=== PATIENT | female | born 1945 | race Caucasian/White ===

== ENCOUNTER 2017-11-22 12:08 | Outpatient (CLI) | payer MEDICARE ==
[2017-11-22 14:03] LABS: #Eosinphils 0.1 thou/uL (0.0-0.7); #Lymphocytes 2.5 thou/uL (1.20-3.40); #Monocytes 0.6 thou/uL (0.11-0.59); #Neutrophils 5.6 thou/uL (1.40-6.50); %Basophils 0.4 % (0.0-1.0); %Eosinophils 1.2 % (0.0-10.0); %Lymphocytes 28.1 % (21.0-51.0); %Monocytes 6.9 % (0.0-10.0); %Neutrophils 63.4 % (42.0-75.0); Hemoglobin 13.5 g/dL (12.0-16.0); Mean Corpuscular Hemoglobin 30.4 pg (27.0-31.0); Mean Corpuscular Volume 92.2 fl (81.0-99.0); Mean Platelet Volume 8.2 fL (7.4-10.4); Platelet Count 246 thou/uL (130-400); RBC Distribution Width 12.3 % (11.5-14.5); Red Blood Cell (RBC) Count 4.45 mill/uL (4.20-5.40); White Blood Cell (WBC) Count 8.9 thou/uL (4.8-10.8)
[2017-11-22 14:04] LABS: Bilirubin Negative (Negative); Blood, Urine Negative (Negative); Clarity CLEAR (Clear); Glucose, Urine (Dipstick) Negative (Negative); Leukocyte Trace (Negative); Nitrite Negative (Negative); Protein, Urine (Dipstick) Negative (Neg-Trace); Specific Gravity, Urine 1.013 (1.002-1.036); Urobilinogen 0.2 mg/dL (0.2-1.0)
[2017-11-22 14:08] LABS: INR-International Normal Ratio 1.1; Prothrombin Time 14.2 SEC (12.0-14.7)
[2017-11-22 14:19] LABS: Bacteria/HPF None Seen HPF (None Seen); Hyaline Casts/LPF 0-3 HYALINE CAST LPF (0-3 Hyaline); RBC/HPF 0-3 HPF (0-3); Squamous Epithelial 0-3 HPF (0-3); WBC/HPF 0-3 HPF (0-3)
[2017-11-22 14:27] LABS: Anion Gap 15 mmol/L (10-20); BUN (Urea Nitrogen) 17 mg/dL (9.8-20.1); Calc. Creatinine Clearance 0 mL/min (70-130); Carbon Dioxide 26 mmol/L (23-31); Chloride 104 mmol/L (98-107); Estimated GFR-MDRD Greater than 90; Glucose 76 mg/dL (83-110); Potassium 3.6 mmol/L (3.5-5.1); Sodium 141 mmol/L (136-145)
--- NOTE | 2017-11-22 16:06 | EKG ---
Test Reason : Blood Pressure : / mmHG Vent. Rate : 061 BPM Atrial Rate : 061 BPM P-R Int : 144 ms QRS Dur : 102 ms QT Int : 416 ms P-R-T Axes : 029 055 035 degrees QTc Int : 418 ms Normal sinus rhythm Nonspecific ST and T wave abnormality Abnormal ECG Confirmed by STEPHEN BACA ([id number]) on 11/22/2017 4:06:24 PM Referred By: VERENA Confirmed By:STEPHEN BACA
== END 2017-11-22 12:09 | disposition home or self-care (01) ==
LOC: LABBT 12:08
PROVIDERS: ATTEND Orthopaedic Surgery
DX: Z01.818 Encounter for other preprocedural examination (principal); M16.11 Unilateral primary osteoarthritis, right hip
CPT/HCPCS: 80048; 81001; 85025; 85610; 86850; 86900; 86901; 87081; 87086; 93005; 93010

== ENCOUNTER 2017-11-22 13:00 | Inpatient (IN) | payer MEDICARE ==
--- NOTE | 2017-11-24 11:10 | HP ---
DATE OF ADMISSION: 11/28/2017 HISTORY OF PRESENT ILLNESS: The patient is a 72-year-old female with a several month history of prog ressive right hip pain without injury. Pain has progressed despite rest, restriction of activities a nd lifestyle adjustments, and use of anti-inflammatory medication. Pain is now interfering with day to day activities, including walking, getting dressed, and sleeping. PAST MEDICAL AND SURGICAL HISTORY: The patient had previous left total hip replacement approximately 7 years ago with good results. She states her current pain is worse than what she had prior to her left hip replacement. She has a history of hypertension, previous . CURRENT MEDICATIONS: Include levothyroxine, lisinopril, simvastatin, multivitamins. ALLERGIES: She is allergic to PENICILLIN. PHYSICAL EXAMINATION: GENERAL: Reveals a healthy female. HEENT: Unremarkable. NECK: Supple. CHEST: Clear. HEART: Regular rate and rhythm. ABDOMEN: Soft, nontender. PELVIC/RECTAL/BREAST: Exams are deferred. EXTREMITIES: Pertinent findings are related to the right hip. Right leg is 1 cm short. There is te nderness over the greater trochanter and the anterior hip. There is right antalgic gait. There is d ecreased range of motion of the right hip and pain with internal rotation. Neurovascular exam is int act. X-RAY FINDINGS: X-rays of the right knee reveal severe DJD with minimal joint space remaining with d efinite progression from previous x-rays. IMPRESSION: 1. Progressive degenerative arthritis, right hip. 2. Status post left total hip replacement. 3. History of hypertension. 4. History of thyroid replacement. PLAN: Right total hip replacement. The nature of the surgery, length of recovery, and potential com plications such as infection, loss of motion, incomplete relief, thromboembolic phenomenon, leg lengt h discrepancy, possible transfusion, and need for revision have been discussed in detail.
[2017-11-28] MEDS ORDERED: Levofloxacin 500 mg/D5W 100 ml Premix Bag ONE (07:02)
[2017-11-28] MEDS ORDERED: Vancomycin HCl 1.5 GM, Admixture Fee 1 EACH in Sodium Chloride 0.9% 250 ML 300 ML IVPB SCH (07:15)
[2017-11-28] MEDS ORDERED: Midazolam HCl 2 mg/2 ml Vial ONE (07:39)
[2017-11-28] MEDS ORDERED: Fentanyl 100 MCG/2 ML VIAL ONE ×2 (07:39→12:27)
[2017-11-28] MEDS ORDERED: diphenhydrAMINE 50 MG/ML VIAL IVP PRN (08:15)
[2017-11-28] MEDS ORDERED: traMADol HCl 50 MG TAB PO PRN ×2 (08:15→14:45)
[2017-11-28] MEDS ORDERED: Ondansetron HCl/PF 4 MG/2 ML Vial IVP PRN ×3 (08:15→14:45)
[2017-11-28] MEDS ORDERED: Bupivacaine 0.25% 10 ML VIAL EPIDURAL PRN (08:15)
[2017-11-28] MEDS ORDERED: Promethazine HCl 25 MG/ML VIAL IM PRN ×2 (08:15→10:53)
[2017-11-28] MEDS ORDERED: fentaNYL Citrate/PF 1,250 MCG, Bupivacaine 25 ML in Sodium Chloride 0.9% 250 ML 200 ML EPIDURAL SCH (08:15)
[2017-11-28] MEDS ORDERED: diphenhydrAMINE 25 MG CAP PO PRN ×2 (08:15→14:45)
[2017-11-28] MEDS ORDERED: Hydrocerin (Eucerin) Cream 120 gm Jar TOP PRN (08:15)
[2017-11-28] MEDS ORDERED: Promethazine HCl 25 MG SUPP PR PRN (08:15)
[2017-11-28] MEDS ORDERED: diphenhydrAMINE 50 MG/ML VIAL IM PRN (08:15)
[2017-11-28] MEDS ORDERED: Naloxone HCl 0.4 mg/ml Vial IV PRN (08:15)
[2017-11-28] MEDS ORDERED: Zolpidem Tartrate 5 MG TAB PO PRN ×2 (08:15→14:45)
[2017-11-28] MEDS ORDERED: Naloxone HCl 0.4 mg/ml Vial IVP PRN (08:15)
[2017-11-28] MEDS ORDERED: HYDROcodone/Acetaminophen 5/325 mg Tablet PO PRN (08:15)
[2017-11-28] MEDS ORDERED: Morphine 10 MG/ML VIAL ONE (10:03)
[2017-11-28] MEDS ORDERED: Promethazine HCl 25 MG/ML VIAL SLOW IVP PRN ×2 (10:53→14:45)
[2017-11-28] MEDS ORDERED: Tranexamic Acid 1,000 MG in Sodium Chloride 0.9% 100 ML IVPB SCH ×2 (11:45→14:45)
[2017-11-28] MEDS ORDERED: Promethazine HCl 25 MG/ML VIAL ONE (11:51)
--- NOTE | 2017-11-28 12:21 | RAD ---
RIGHT HIP TWO VIEWS: History: Post op total hip arthroplasty. FINDINGS/IMPRESSION: There is post op changes of total hip arthroplasty in good position and alignment. Soft tissue air is present. POS: JOEYH
--- NOTE | 2017-11-28 12:31 | OP ---
DATE OF PROCEDURE: 11/28/2017 PREOPERATIVE DIAGNOSIS: End-stage bicompartmental osteoarthritis, right hip. POSTOPERATIVE DIAGNOSIS: End-stage bicompartmental osteoarthritis, right hip. PROCEDURE: Press-Fit right total hip arthroplasty. SURGEON: Asad Brewer M.D. COMPRESSION MOLDING MACHINE SETTER: Garrison Tello PA-C. ANESTHESIA: General via endotracheal tube augmented with indwelling epidural. COMPONENTS USED: [employer], Trident PSL cluster acetabular shell, 52 mm with a 10 degree T rident polyethylene fixed bearing insert, a size 3 Accolade press-fit hip stem and a 36 mm +5 offset metallic femoral head. FINDINGS: End-stage severe degenerative bicompartmental disease, bone on bone arthrosis, periarticul ar osteophyte formation, large serous effusion, hypertrophic synovium, and capsule. ESTIMATED BLOOD LOSS: 100 mL. DRAINS: None. SPECIMENS: None. COMPLICATIONS: None. COUNTS: Correct. INDICATIONS FOR SURGERY: Janette is a 72-year-old white female who has had progressive right hip, gr oin and thigh pain for the last 10-12 years. She has failed conservative management and elected to p roceed with total hip arthroplasty as a definitive treatment of her pain. PROCEDURE IN DETAIL: After informed consent was obtained in the preoperative holding area, the patie nt was taken to the operative suite where general anesthesia was induced. The patient was then posit ioned in the lateral decubitus position. The hip was then prepped and draped in usual sterile fashio n. The patient received preoperative antibiotics. Prior to incision, time-out was called and all me mbers of the surgical team agreed upon site, surgeon, and patient. After this, a longitudinal incisi on was made directly over the trochanter, noted by palpation extending 2 fingerbreadths above and bel ow the trochanter. The deeper subcutaneous layer was undermined with Bovie electrocautery. The ilio tibial band was encountered and incised sharply and the plane below this was developed bluntly. A shara retractor was placed to hold this opened. The lateral aspect of the trochanter and the abduct or muscles were encountered and then reflected anteriorly off the trochanter using Bovie electrocaute ry. Once this was completed, the anterior capsule was then encountered and identified and copious ca psulotomy was carried out, exposing the femoral neck and head. Dislocation maneuver was then performe d and an in situ provisional neck cut was then made using the oscillating saw. Attention was then tu rned to acetabular preparation and sequential reaming was carried out up to the appropriate diameter and a trial was then malleted into place with good firm resistance and no pullout. The permanent trenton tabular shell was then malleted squarely into place, as was the appropriate liner. Once completed, t he wound was copiously irrigated and attention was then turned to femoral preparation. Flexion and ex ternal rotation was performed of the exposed thigh and femoral elevators were then placed at the prox imal aspect of the wound. Canal finder was used to establish the length of the canal and sequential reaming was carried out, followed by broaching. Once the appropriate stability was established with the trial broaches with both flexion, extension and rotational stability, we did trial with neutral a nd 2 mm offset incremental necks. Once the appropriate size was decided upon, with good stability no gabby with flexion, extension, internal and external rotation and shuck being negative, we removed the femoral trial broach and malletted into place the permanent prosthesis with good firm fit, which was also stable to rotation. Again, the hip felt very stable to flexion, extension, internal and externa l rotation. Leg lengths appeared near anatomic clinically and we were quite happy with prosthesis pl acement. Copious irrigation was then carried out through the entirety of the wound. Primary closure of the abductors was accomplished with interrupted #2 Vicryl bihbdc-pt-titdu stitches and the IT ban d was then closed with interrupted #2 Vicryl, oversewn with a #2 running barbed Quill stitch. Subcut aneous fascia was closed with running barbed Quill stitch and a subcuticular Monocryl barbed Quill st itch was used for skin closure and augmented with skin cement. A sterile dressing was applied. The p rocedure was terminated without any complication. All counts were correct. The patient was awakened in the operative suite and taken to the recovery room in stable condition.
[2017-11-28] MEDS ORDERED: Polyethylene Glycol 3350 17 GM Packet PO PRN (14:45)
[2017-11-28] MEDS ORDERED: HYDROcodone/Acetaminophen 10/325 mg Tablet PO PRN ×2 (14:45)
[2017-11-28] MEDS ORDERED: Acetaminophen 325 MG TAB PO PRN (14:45)
[2017-11-28] MEDS ORDERED: Fentanyl 100 MCG/2 ML VIAL SLOW IVP PRN ×2 (14:45)
[2017-11-28] MEDS ORDERED: Glycopyrrolate 0.2 MG/ML 5 ML SYRINGE ONE (15:47)
[2017-11-28] MEDS ORDERED: ePHEDrine/0.9% NaCl/PF SYRINGE 50 mg/10 ml ONE (15:47)
[2017-11-28] MEDS ORDERED: PROPOFOL 200 MG/20 ML VIAL ONE (15:47)
[2017-11-28] MEDS ORDERED: Senokot 8.6 MG TAB PO PRN (15:50)
[2017-11-28] MEDS ORDERED: hydrALAZINE 20 MG/ML VIAL SLOW IVP PRN (15:50)
[2017-11-28] MEDS ORDERED: Eucerin (Mineral Oil/Petrolatum,White) 30 gm Jar TOP PRN (15:50)
[2017-11-28] MEDS ORDERED: Milk Of Magnesia 30 ML UDCUP PO PRN (15:50)
[2017-11-28] MEDS ORDERED: Chloraseptic Spray 180 ml Bottle PO PRN (15:50)
[2017-11-28] MEDS ORDERED: Docusate 100 MG CAP PO PRN (15:50)
[2017-11-28] MEDS ORDERED: Artificial Tears 18 DROP/0.9 ML EA EYE PRN (15:50)
[2017-11-28] MEDS ORDERED: Mag-Al 1200 mg/1200 mg/30 ML UDCUP PO PRN (15:50)
[2017-11-28] MEDS ORDERED: Loperamide HCl 2 MG CAP PO PRN (15:50)
[2017-11-28] MEDS ORDERED: Diabetic Tussin 200 MG/10 ML UDCUP PO PRN (15:50)
--- NOTE | 2017-11-28 15:52 | PDOC.EVN ---
Event Note - Event Note Event Note: pt is seen and examined bedside, order written and plan explained to pt, consult note will be dictated later for more details
--- NOTE | 2017-11-28 18:26 | CON ---
DATE OF CONSULTATION: 11/28/2017 PRIMARY CARE PHYSICIAN: [facility] Call Consult. PRIMARY ATTENDING: Asad Brewer MD REASON FOR CONSULTATION: Medical comanagement. HISTORY OF PRESENT ILLNESS: A 72-year-old female who has history of hypertension, dyslipidemia, hypo thyroidism who is admitted by Dr. Brewer today for right total hip replacement. Dr. Brewer did right t otal hip replacement earlier today and subsequently, the patient was admitted to [facility]. A t that point, we were consulted for medical comanagement. The patient has history of several months right hip pain without any injury. Pain has progressed and limiting her activity as well as affecting her quality of life. The patient has failed outpatient c onservative treatment including exercise, NSAID. Now a days, pain is not getting better and affectin g lot of daily activities, even sleep, and that is why finally the patient agreed to go for right tot al hip replacement. The patient does have history of previous complicated surgery with diverticulitis and subsequent perf oration, required emergent surgery with a colostomy, and subsequently the patient had colostomy rever jessie. At that time, the patient's surgical site was also infected, required wound VAC. At this point , the patient does concern about any possible complication. The patient denies any chest pain, palpitation, shortness of breath. She does not have any currently UTI symptoms. She does not have any constipation, diarrhea, melena, or hematochezia. REVIEW OF SYSTEMS: The following complete review of systems was negative, unless otherwise mentioned in the HPI or below: Constitutional: Weight loss or gain, ability to conduct usual activities. Skin: Rash, itching. Eyes: Double vision, pain. ENT/Mouth: Nose bleeding, neck stiffness, pain, tenderness. Cardiovascular: Palpitations, dyspnea on exertion, orthopnea. Respiratory: Shortness of breath, wheezing, cough, hemoptysis, fever or night sweats. Gastrointestinal: Poor appetite, abdominal pain, heartburn, nausea, vomiting, constipation, or diarr hea. Genitourinary: Urgency, frequency, dysuria, nocturia. Musculoskeletal: Pain, swelling. Neurologic/Psychiatric: Anxiety, depression. Allergy/Immunologic: Skin rash, bleeding tendency. All review of systems reviewed with the patient and negative except as mentioned in the HPI. PAST MEDICAL HISTORY: Hypertension, dyslipidemia, diverticulosis, hypothyroidism, obesity with BMI 3 4. PAST SURGICAL HISTORY: x2; tonsillectomy; left hip replacement; laparotomy for diverticula r rupture, required colostomy and subsequently colostomy reversal. PAST PSYCHIATRIC HISTORY: Reviewed and negative. ALLERGIES: NSAID, PENICILLIN. CURRENT HOME MEDICATIONS: Aspirin 81 mg p.o. daily, Synthroid 100 mcg p.o. daily, Prinzide 10/12.5 o ne tablet p.o. daily, Zocor 80 mg p.o. at bedtime. HOSPITAL COURSE: Reviewed. SOCIAL HISTORY: The patient is . She does not have any tobacco, alcohol, or illicit drug abu se. FAMILY HISTORY: No strong family history of premature coronary artery disease, stroke, or cancer. PHYSICAL EXAMINATION: VITAL SIGNS: Today, temperature 97.4, pulse 71, respiratory rate 20, saturation 96%, blood pressure 152/82, weight 211 pounds. GENERAL: The patient is currently alert, awake, no obvious acute distress, pain-free, has epidural i n place. HEAD: Normocephalic and atraumatic. EYES: Pupils round and reactive to light. Extraocular muscle intact. ENT: Oropharynx within normal limit. Moist mucous membrane. No oral lesion, no pharyngeal erythema , no exudate. NECK: Supple. No JVD, no thyromegaly, no carotid bruit, no jugular venous distention. LUNGS: Clear to auscultation without any rhonchi or rales. CARDIAC: S1, S2 are regular. No murmur elicited. No gallop, no rub. ABDOMEN: Soft. Obesity present. Bowel sounds present. Nontender, nondistended. No organomegaly, no mass, no suprapubic tenderness. BACK: Unremarkable. No CVA tenderness. EXTREMITIES: Upper extremity, passive movement of all joints are normal. Lower extremity, right hip surgical site covered with a dressing, epidural in place. No edema. Good distal pulsation. SKIN: No skin rash. HEMATOLOGIC: No lymphadenopathy. PSYCHIATRIC: Normal affect. NEUROLOGIC: The patient is moving all 4 limbs. Plantar, bilateral flexor. Reflex is symmetrical. Motor and sensation are within normal limits. Grossly nonfocal neurological examination. SIGNIFICANT LABS: CBC: WBC 8.9, hemoglobin 13.5, platelet 246. INR is 1.1. BMP: Sodium 141, pota ssium 4, chloride 104, carbon dioxide 26, BUN 17, creatinine 0.64, glucose 76, calcium 10. Urinalysi s is unremarkable. Hip x-ray done today reviewed by me. Electrocardiogram reviewed by me and consis tent with normal sinus rhythm, nonspecific ST-T changes. ASSESSMENT AND PLAN: 1. Status post right total hip replacement. The patient is doing very well at this point. Her pain is under control. She has epidural in place. She is going to get aspirin 81 mg p.o. b.i.d. for khurram p venous thrombosis prophylaxis. The patient will have Pepcid 20 mg p.o. b.i.d. for GI prophylaxis. The patient will get PT/OT as per [facility] protocol treatment. Based on clinical course, we will decide whether this patient needs any rehabilitation or home health upon discharge. 2. Hypertension. Currently, blood pressure is well controlled. We will resume the patient's home m edication lisinopril with hydrochlorothiazide one tablet daily. We will use hydralazine on p.r.n. ba sis. 3. Hypothyroidism. Continue home medication, Synthroid 100 mcg p.o. daily. 4. Dyslipidemia. Continue Zocor 80 mg p.o. at bedtime. 5. Obesity with BMI 34. Diet re-education given. Weight loss education given. Healthy lifestyle m easure discussed with the patient. 6. Deep venous thrombosis prophylaxis. The patient is already on aspirin therapy as per protocol vignesh gooden. 7. Gastrointestinal prophylaxis, Pepcid 20 mg p.o. b.i.d. 8. Code status: The patient is FULL CODE. The patient's is surrogate decision maker. Disposition plan based on clinical course and primary team. The patient will have IV fluid today and tomorrow. We will discontinue IV fluid. We will make sure during this admission that the patient s hould not get constipated with narcotics. Plan of care discussed with the patient's at bedside.
[2017-11-28] MEDS: Sodium Chloride 0.9% 1,000 ML IV SCH (18:31)
[2017-11-28] MEDS ORDERED: Lisinopril/Hydrochlorothiazide 10 mg/12.5 mg Tablet PO SCH (18:45)
[2017-11-28] MEDS ORDERED: Vancomycin HCl 1.5 GM in Sodium Chloride 0.9% 250 ML 300 ML IVPB SCH (20:00)
[2017-11-28] MEDS: Atorvastatin Calcium 40 MG TAB PO SCH (21:34)
[2017-11-28] MEDS: Famotidine 20 MG TAB PO SCH (21:34)
[2017-11-28] MEDS: HYDROcodone/Acetaminophen 5/325 mg Tablet PO PRN (23:57)
[2017-11-29] MEDS: Sodium Chloride 0.9% 1,000 ML IV SCH ×3 (00:04→20:47)
[2017-11-29] MEDS: Levothyroxine Sodium 100 MCG TAB PO SCH (06:33)
[2017-11-29 06:42] LABS: Hemoglobin 10.8 g/dL (12.0-16.0); Mean Corpuscular HGB CONC 33.6 g/dL (32.0-36.0); Mean Corpuscular Hemoglobin 30.8 pg (27.0-31.0); Mean Corpuscular Volume 91.7 fl (81.0-99.0); Mean Platelet Volume 8.5 fL (7.4-10.4); Platelet Count 209 thou/uL (130-400); RBC Distribution Width 12.4 % (11.5-14.5); White Blood Cell (WBC) Count 10.3 thou/uL (4.8-10.8)
[2017-11-29] MEDS: Famotidine 20 MG TAB PO SCH ×2 (08:14→21:56)
[2017-11-29] MEDS: Multivitamin W/ Minerals 1 TAB PO SCH (08:14)
[2017-11-29] MEDS: Senokot S 8.6-50 MG TAB PO SCH ×2 (08:14→21:56)
[2017-11-29] MEDS ORDERED: Lisinopril/Hydrochlorothiazide 10 mg/12.5 mg Tablet PO SCH (09:00)
[2017-11-29] MEDS ORDERED: Acetaminophen 325 MG TAB PO PRN (10:48)
[2017-11-29] MEDS ORDERED: Scopolamine 1.5 mg/72 hour Patch TOP PRN (10:49)
[2017-11-29] MEDS ORDERED: Ondansetron ODT 4 MG TAB PO PRN (10:50)
[2017-11-29] MEDS: BUPIVACAINE EPIDURAL SCH (12:16)
[2017-11-29] MEDS: SODIUM CHLORIDE EPIDURAL SCH (12:16)
[2017-11-29] MEDS: ADMIXTURE FEE EPIDURAL SCH (12:16)
[2017-11-29] MEDS: traMADol HCl 50 MG TAB PO PRN (16:55)
[2017-11-29] MEDS: HYDROcodone/Acetaminophen 5/325 mg Tablet PO PRN (21:57)
[2017-11-29] MEDS: Atorvastatin Calcium 40 MG TAB PO SCH (21:57)
--- NOTE | 2017-11-29 22:14 | PDOC.PN ---
- Subjective Encounter Start Date: 11/29/17 Encounter Start Time: 16:30 Patient seen and examined for med mngt. No new complaints. Febrile earlier today. BP lower this morning. No overnight events - Objective Resuscitation Status: Resuscitation Status FULL:Full Resuscitation MAR Reviewed: Yes Vital Signs & Weight: Vital Signs (12 hours) BP BP 11/29/17 13:14 110/96 H 93/60 Weight Admit Weight 211 lb 10.3 oz Weight 211 lb 10.3 oz I&O: 11/28/17 11/29/17 11/30/17 06:59 06:59 06:59 Intake Total 3182 1260 Output Total 950 1350 Balance 2232 -90 Result Diagrams: 11/30/17 05:14 11/30/17 05:14 Phys Exam - Physical Examination Constitutional: NAD Respiratory: no wheezing, no rales, no rhonchi Cardiovascular: RRR, no rub Gastrointestinal: soft, non-tender, no distention, positive bowel sounds Musculoskeletal: no edema Neurological: moves all 4 limbs Dx/Plan - Plan DVT proph w/SCDs IMPRESSION: 1. HTN 2. Low grade fever - unlikely to be infectious 3. Obesity BMI 34.2 4. Dyslipidemia 5. Hypothyroidism PLAN: * Fever improving after acetaminophen * AM labs * Encourage IS * Cont PT * Cont current med as below * Add holding parameters to HTN meds * Add Miralax for constipation Review of Systems - Review of Systems Respiratory: negative: Cough, Dry, Shortness of Breath, Hemoptysis, SOB with Excertion, Pleuritic Pain, Sputum, Wheezing Cardiovascular: negative: chest pain, palpitations, orthopnea, paroxysmal nocturnal dyspnea, edema, light headedness, other Gastrointestinal: Constipation. negative: Nausea, Vomiting, Abdominal Pain, Diarrhea, Melena, Hematochezia, Other Genitourinary: negative: Dysuria, Frequency, Incontinence, Hematuria, Retention , Other - Medications/Allergies Allergies/Adverse Reactions: Allergies Allergy/AdvReac Type Severity Reaction Status Date / Time NSAIDS (Non-Steroidal Allergy Rash Verified 11/22/17 12:46 Anti-Inflamma Penicillins Allergy Rash Verified 11/22/17 12:46 Medications: Current Medications Acetaminophen (Tylenol) 650 mg PO Q4H PRN PRN Reason: WILLS/ T > 101F; Mild Pain (1-3) Last Admin: 11/29/17 12:15 Dose: 650 mg Hydrocodone Bitart/Acetaminophen ([place] 5/325) 1 tab PO Q4H PRN PRN Reason: Mild Pain 0-3 Hydrocodone Bitart/Acetaminophen ([place] 5/325) 2 tab PO Q4H PRN PRN Reason: For Moderate Pain 4-6 Last Admin: 11/29/17 21:57 Dose: 2 tab Al Hydroxide/Mg Hydroxide (Maalox) 15 ml PO Q4H PRN PRN Reason: Heartburn or Indigestion Artificial Tears (Tears Naturale) 0 drop EA EYE PRN PRN PRN Reason: Dry Eyes Aspirin (Aspirin Chewable) 81 mg PO BID [facility] Last Admin: 11/29/17 21:57 Dose: 81 mg Atorvastatin Calcium (Lipitor) 40 mg PO HS [facility] Last Admin: 11/29/17 21:57 Dose: 40 mg Diphenhydramine HCl (Benadryl) 25 mg PO Q3H PRN PRN Reason: Itching Diphenhydramine HCl (Benadryl) 25 mg IM Q3H PRN PRN Reason: Itching Diphenhydramine HCl (Benadryl) 25 mg IVP Q3H PRN PRN Reason: Itching Docusate Sodium (Colace) 100 mg PO BIDPRN PRN PRN Reason: Constipation Emollient Cream (Hydrocerin Cream) 0 gm TOP PRN PRN PRN Reason: Itching Famotidine (Pepcid) 20 mg PO BID [facility] Last Admin: 11/29/17 21:56 Dose: 20 mg Guaifenesin (Robitussin Sf) 200 mg PO Q4H PRN PRN Reason: Cough Lisinopril/HCTZ (Prinizide 10-12.5) 1 tab PO QAM [facility] Hydralazine HCl (Apresoline) 10 mg SLOW IVP Q4H PRN PRN Reason: Systolic BP > 180 Sodium Chloride (Normal Saline 0.9%) 1,000 mls @ 100 mls/hr IV .Q10H [facility] Last Admin: 11/29/17 20:47 Dose: Not Given Bupivacaine HCl 10 ml/Miscellaneous Medication 1 each/ Sodium Chloride 100 mls @ 6 mls/hr EPIDURAL INF [facility] Last Admin: 11/29/17 12:16 Dose: 100 mls Iron/Minerals/Multivitamins (Theragran M) 1 tab PO DAILY [facility] Last Admin: 11/29/17 08:14 Dose: 1 tab Levothyroxine Sodium (Synthroid) 100 mcg PO 0600 [facility] Last Admin: 11/29/17 06:33 Dose: 100 mcg Loperamide HCl (Imodium) 2 mg PO PRN PRN PRN Reason: Diarrhea/Loose Stools Magnesium Hydroxide (Milk Of Magnesium) 30 ml PO DAILYPRN PRN PRN Reason: Constipation Mineral Oil/White Petrolatum (Eucerin Cream) 0 gm TOP BIDPRN PRN PRN Reason: Dry Skin Miscellaneous Information (Communication Order-Pharmacy) 1 each FS ASDIR [facility] Naloxone HCl (Narcan) 0.2 mg IV Q5MIN PRN PRN Reason: RR <=8 OR OBTUNDED/UNAROUSABLE Naloxone HCl (Narcan) 0.1 mg IVP Q15MIN PRN PRN Reason: URINARY RETENTION Ondansetron HCl (Zofran) 4 mg IVP Q6H PRN PRN Reason: Nausea/Vomiting Ondansetron HCl (Zofran Odt) 4 mg PO Q6H PRN PRN Reason: Nausea/Vomiting Phenol (Chloraseptic [place] 180 Ml Bot) 0 ml PO PRN PRN PRN Reason: Sore Throat Polyethylene Glycol (Miralax) 17 gm PO DAILYPRN PRN PRN Reason: Constipation Promethazine HCl (Phenergan) 12.5 mg IM Q4H PRN PRN Reason: Nausea Promethazine HCl (Phenergan Suppository) 25 mg PA Q4H PRN PRN Reason: Nausea/Vomiting Promethazine HCl (Phenergan) 12.5 mg SLOW IVP Q4H PRN PRN Reason: Nausea/Vomiting Scopolamine (Transderm Scop) 1.5 mg TOP Q3D PRN PRN Reason: Nausea/Vomiting Last Admin: 11/29/17 12:14 Dose: 1.5 mg Senna (Senokot) 2 tab PO HSPRN PRN PRN Reason: Constipation Senna/Docusate Sodium (Senokot S) 2 tab PO BID [facility] Last Admin: 11/29/17 21:56 Dose: 2 tab Sodium Chloride (Flush - Normal Saline) 10 ml IVF Q12HR [facility] Last Admin: 11/29/17 21:57 Dose: 10 ml Sodium Chloride (Flush - Normal Saline) 10 ml IVF PRN PRN PRN Reason: Saline Flush Tramadol HCl (Ultram) 50 mg PO Q6H PRN PRN Reason: Mild Pain 1-3 Last Admin: 11/29/17 16:55 Dose: 50 mg Tramadol HCl (Ultram) 100 mg PO Q6H PRN PRN Reason: Moderate Pain 4-6 Zolpidem Tartrate (Ambien) 5 mg PO HSPRN PRN PRN Reason: Insomnia
[2017-11-30] MEDS: Sodium Chloride 0.9% 1,000 ML IV SCH ×2 (04:55→17:13)
[2017-11-30] MEDS: Levothyroxine Sodium 100 MCG TAB PO SCH (05:33)
[2017-11-30 05:37] LABS: #Eosinphils 0.1 thou/uL (0.0-0.7); #Lymphocytes 1.3 thou/uL (1.20-3.40); #Monocytes 0.8 thou/uL (0.11-0.59); #Neutrophils 8.4 thou/uL (1.40-6.50); %Basophils 0.2 % (0.0-1.0); %Eosinophils 0.9 % (0.0-10.0); %Lymphocytes 12.2 % (21.0-51.0); %Monocytes 7.4 % (0.0-10.0); %Neutrophils 79.2 % (42.0-75.0); Hemoglobin 10.4 g/dL (12.0-16.0); Mean Corpuscular HGB CONC 32.6 g/dL (32.0-36.0); Mean Corpuscular Volume 92.1 fl (81.0-99.0); Mean Platelet Volume 8.5 fL (7.4-10.4); Platelet Count 184 thou/uL (130-400); RBC Distribution Width 12.1 % (11.5-14.5); Red Blood Cell (RBC) Count 3.46 mill/uL (4.20-5.40); White Blood Cell (WBC) Count 10.6 thou/uL (4.8-10.8)
[2017-11-30 05:51] LABS: ALT (SGPT) 21 U/L (8-55); AST (SGOT) 31 U/L (5-34); Albumin 3.2 g/dL (3.4-4.8); Alkaline Phosphatase 70 U/L (40-150); Anion Gap 10 mmol/L (10-20); BUN (Urea Nitrogen) 9 mg/dL (9.8-20.1); Bilirubin, Total 0.8 mg/dL (0.2-1.2); Calc. Creatinine Clearance 118 mL/min (70-130); Calcium 8.7 mg/dL (7.8-10.44); Carbon Dioxide 27 mmol/L (23-31); Chloride 102 mmol/L (98-107); Estimated GFR-MDRD 88; Globulin 2.4 g/dL (2.4-3.5); Glucose 119 mg/dL (83-110); Potassium 3.3 mmol/L (3.5-5.1); Protein, Total 5.6 g/dL (6.0-8.3); Sodium 136 mmol/L (136-145)
[2017-11-30] MEDS: ADMIXTURE FEE EPIDURAL SCH (06:29)
[2017-11-30] MEDS: BUPIVACAINE EPIDURAL SCH (06:29)
[2017-11-30] MEDS: SODIUM CHLORIDE EPIDURAL SCH (06:29)
[2017-11-30] MEDS: Senokot S 8.6-50 MG TAB PO SCH ×2 (08:38→20:31)
[2017-11-30] MEDS: Polyethylene Glycol 3350 17 GM Packet PO SCH (08:38)
[2017-11-30] MEDS: Lisinopril 5 MG TAB PO SCH ×2 (08:38→20:31)
[2017-11-30] MEDS: Potassium Chloride 20 MEQ TAB PO SCH (08:39)
[2017-11-30] MEDS: Multivitamin W/ Minerals 1 TAB PO SCH (08:40)
[2017-11-30] MEDS: Famotidine 20 MG TAB PO SCH ×2 (08:40→20:30)
[2017-11-30] MEDS ORDERED: Lisinopril/Hydrochlorothiazide 10 mg/12.5 mg Tablet PO SCH (09:00)
[2017-11-30 12:11] VITALS: BMI 34.0
[2017-11-30] MEDS: traMADol HCl 50 MG TAB PO PRN (14:36)
[2017-11-30] MEDS: HYDROcodone/Acetaminophen 5/325 mg Tablet PO PRN (20:30)
[2017-11-30] MEDS: Atorvastatin Calcium 40 MG TAB PO SCH (20:30)
[2017-12-01] MEDS: Sodium Chloride 0.9% 1,000 ML IV SCH ×2 (02:54→18:43)
[2017-12-01] MEDS: Levothyroxine Sodium 100 MCG TAB PO SCH (05:04)
[2017-12-01 05:26] LABS: #Eosinphils 0.2 thou/uL (0.0-0.7); #Lymphocytes 1.8 thou/uL (1.20-3.40); #Monocytes 0.9 thou/uL (0.11-0.59); #Neutrophils 8.2 thou/uL (1.40-6.50); %Basophils 0.3 % (0.0-1.0); %Eosinophils 1.5 % (0.0-10.0); %Lymphocytes 16.3 % (21.0-51.0); %Monocytes 7.9 % (0.0-10.0); %Neutrophils 74.1 % (42.0-75.0); Hemoglobin 9.9 g/dL (12.0-16.0); Mean Corpuscular Hemoglobin 30.7 pg (27.0-31.0); Mean Corpuscular Volume 92.9 fl (81.0-99.0); Mean Platelet Volume 8.4 fL (7.4-10.4); Platelet Count 194 thou/uL (130-400); RBC Distribution Width 12.1 % (11.5-14.5); Red Blood Cell (RBC) Count 3.23 mill/uL (4.20-5.40)
[2017-12-01 05:31] LABS: Potassium 3.2 mmol/L (3.5-5.1)
--- NOTE | 2017-12-01 07:48 | RAD ---
CHEST 1 VIEW: HISTORY: A 72-year-old female with fever. FINDINGS: Mild cardiomegaly. Minimal linear parenchymal changes in the bases with some right hemidiaphragm janice vation somewhat more prominent than on the prior study of 12/31/11. No confluent pneumonia. IMPRESSION: Minimal bibasilar parenchymal changes with some minimal right hemidiaphragm elevation, nonspecific. Possibilities include that of some minimal chronic change or mild bibasilar atypical pneumonia or pne umonitis. Minimal cardiomegaly. No overt pulmonary edema. POS: OFF
[2017-12-01] MEDS: Multivitamin W/ Minerals 1 TAB PO SCH (08:31)
[2017-12-01] MEDS: Lisinopril 5 MG TAB PO SCH (08:31)
[2017-12-01] MEDS: Potassium Chloride 20 MEQ TAB PO SCH (08:31)
[2017-12-01] MEDS: Senokot S 8.6-50 MG TAB PO SCH ×2 (08:32→20:28)
[2017-12-01] MEDS: Famotidine 20 MG TAB PO SCH ×2 (08:32→20:28)
[2017-12-01] MEDS: Polyethylene Glycol 3350 17 GM Packet PO SCH (08:32)
[2017-12-01] MEDS: HYDROcodone/Acetaminophen 5/325 mg Tablet PO PRN ×2 (09:18→20:28)
--- NOTE | 2017-12-01 16:11 | PDOC.PN ---
- Subjective Encounter Start Date: 12/01/17 Encounter Start Time: 12:00 Patient seen and examined for med mngt. No new complaints. No overnight events. Fever improving. - Objective Resuscitation Status: Resuscitation Status FULL:Full Resuscitation MAR Reviewed: Yes Vital Signs & Weight: Vital Signs (12 hours) Temp Pulse Resp BP BP Pulse Ox 12/01/17 15:15 98.3 F 97 16 97/61 92 L 12/01/17 11:45 98.3 F 95 16 97/62 92 L 12/01/17 08:31 104 H 102/57 L 12/01/17 08:00 98.4 F 104 H 16 94 L 12/01/17 07:38 98.4 F 104 H 16 102/57 L 94 L 12/01/17 05:46 98.3 F 78 16 109/73 97 Weight Admit Weight 211 lb 10.3 oz Weight 211 lb I&O: 11/30/17 12/01/17 12/02/17 06:59 06:59 06:59 Intake Total 2292 1880 Output Total 3450 1700 700 Balance -1158 180 -700 Result Diagrams: 12/01/17 04:48 12/01/17 04:48 Radiology Reviewed by me: Yes (CXR - no infiltrate) Phys Exam - Physical Examination Constitutional: NAD Respiratory: no wheezing, no rhonchi Cardiovascular: RRR, no rub Gastrointestinal: soft, non-tender, positive bowel sounds Musculoskeletal: no edema Neurological: moves all 4 limbs Dx/Plan - Plan DVT proph w/SCDs IMPRESSION: 1. HTN - BP on lower side 2. Low grade fever - unlikely to be infectious, improving 3. Hypokalemia 4. Dyslipidemia 5. Hypothyroidism 6. Obesity BMI 34.2 PLAN: * CXR negative * Change Lisinopril to daily * Replace Potassium * Check Potassium in AM * Fever improving after acetaminophen * Encourage IS * Cont PT * Cont current med as below Review of Systems - Review of Systems Respiratory: negative: Cough, Dry, Shortness of Breath, Hemoptysis, SOB with Excertion, Pleuritic Pain, Sputum, Wheezing Cardiovascular: negative: chest pain, palpitations, orthopnea, paroxysmal nocturnal dyspnea, edema, light headedness, other Gastrointestinal: negative: Nausea, Vomiting, Abdominal Pain, Diarrhea, Constipation, Melena, Hematochezia, Other Genitourinary: negative: Dysuria, Frequency, Incontinence, Hematuria, Retention , Other Skin: negative: Rash, Lesions, [place], Bruising, Other - Medications/Allergies Allergies/Adverse Reactions: Allergies Allergy/AdvReac Type Severity Reaction Status Date / Time NSAIDS (Non-Steroidal Allergy Rash Verified 11/22/17 12:46 Anti-Inflamma Penicillins Allergy Rash Verified 11/22/17 12:46 Medications: Current Medications Acetaminophen (Tylenol) 650 mg PO Q4H PRN PRN Reason: WILLS/ T > 101F; Mild Pain (1-3) Last Admin: 11/29/17 12:15 Dose: 650 mg Hydrocodone Bitart/Acetaminophen ([place] 5/325) 1 tab PO Q4H PRN PRN Reason: Mild Pain 0-3 Hydrocodone Bitart/Acetaminophen ([place] 5/325) 2 tab PO Q4H PRN PRN Reason: For Moderate Pain 4-6 Last Admin: 12/01/17 09:18 Dose: 2 tab Al Hydroxide/Mg Hydroxide (Maalox) 15 ml PO Q4H PRN PRN Reason: Heartburn or Indigestion Artificial Tears (Tears Naturale) 0 drop EA EYE PRN PRN PRN Reason: Dry Eyes Aspirin (Aspirin Chewable) 81 mg PO BID [facility] Last Admin: 12/01/17 08:32 Dose: 81 mg Atorvastatin Calcium (Lipitor) 40 mg PO HS [facility] Last Admin: 11/30/17 20:30 Dose: 40 mg Diphenhydramine HCl (Benadryl) 25 mg PO Q3H PRN PRN Reason: Itching Diphenhydramine HCl (Benadryl) 25 mg IM Q3H PRN PRN Reason: Itching Diphenhydramine HCl (Benadryl) 25 mg IVP Q3H PRN PRN Reason: Itching Docusate Sodium (Colace) 100 mg PO BIDPRN PRN PRN Reason: Constipation Emollient Cream (Hydrocerin Cream) 0 gm TOP PRN PRN PRN Reason: Itching Famotidine (Pepcid) 20 mg PO BID [facility] Last Admin: 12/01/17 08:32 Dose: 20 mg Guaifenesin (Robitussin Sf) 200 mg PO Q4H PRN PRN Reason: Cough Hydralazine HCl (Apresoline) 10 mg SLOW IVP Q4H PRN PRN Reason: Systolic BP > 180 Bupivacaine HCl 10 ml/Miscellaneous Medication 1 each/ Sodium Chloride 100 mls @ 6 mls/hr EPIDURAL INF [facility] Last Admin: 11/30/17 06:29 Dose: 100 mls Iron/Minerals/Multivitamins (Theragran M) 1 tab PO DAILY [facility] Last Admin: 12/01/17 08:31 Dose: 1 tab Levothyroxine Sodium (Synthroid) 100 mcg PO 0600 [facility] Last Admin: 12/01/17 05:04 Dose: 100 mcg Lisinopril (Zestril) 5 mg PO BID [facility] Last Admin: 12/01/17 08:31 Dose: Not Given Loperamide HCl (Imodium) 2 mg PO PRN PRN PRN Reason: Diarrhea/Loose Stools Magnesium Hydroxide (Milk Of Magnesium) 30 ml PO DAILYPRN PRN PRN Reason: Constipation Mineral Oil/White Petrolatum (Eucerin Cream) 0 gm TOP BIDPRN PRN PRN Reason: Dry Skin Miscellaneous Information (Communication Order-Pharmacy) 1 each FS ASDIR [facility] Naloxone HCl (Narcan) 0.2 mg IV Q5MIN PRN PRN Reason: RR <=8 OR OBTUNDED/UNAROUSABLE Naloxone HCl (Narcan) 0.1 mg IVP Q15MIN PRN PRN Reason: URINARY RETENTION Ondansetron HCl (Zofran) 4 mg IVP Q6H PRN PRN Reason: Nausea/Vomiting Ondansetron HCl (Zofran Odt) 4 mg PO Q6H PRN PRN Reason: Nausea/Vomiting Phenol (Chloraseptic [place] 180 Ml Bot) 0 ml PO PRN PRN PRN Reason: Sore Throat Polyethylene Glycol (Miralax) 17 gm PO DAILYPRN PRN PRN Reason: Constipation Polyethylene Glycol (Miralax) 17 gm PO DAILY [facility] Last Admin: 12/01/17 08:32 Dose: Not Given Potassium Chloride (K-Dur) 20 meq PO QAM[facility] Last Admin: 12/01/17 08:31 Dose: 20 meq Promethazine HCl (Phenergan) 12.5 mg IM Q4H PRN PRN Reason: Nausea Promethazine HCl (Phenergan Suppository) 25 mg NE Q4H PRN PRN Reason: Nausea/Vomiting Promethazine HCl (Phenergan) 12.5 mg SLOW IVP Q4H PRN PRN Reason: Nausea/Vomiting Scopolamine (Transderm Scop) 1.5 mg TOP Q3D PRN PRN Reason: Nausea/Vomiting Last Admin: 11/29/17 12:14 Dose: 1.5 mg Senna (Senokot) 2 tab PO HSPRN PRN PRN Reason: Constipation Senna/Docusate Sodium (Senokot S) 2 tab PO BID [facility] Last Admin: 12/01/17 08:32 Dose: 2 tab Sodium Chloride (Flush - Normal Saline) 10 ml IVF Q12HR [facility] Last Admin: 11/30/17 20:32 Dose: 10 ml Sodium Chloride (Flush - Normal Saline) 10 ml IVF PRN PRN PRN Reason: Saline Flush Tramadol HCl (Ultram) 50 mg PO Q6H PRN PRN Reason: Mild Pain 1-3 Last Admin: 11/30/17 14:36 Dose: 50 mg Tramadol HCl (Ultram) 100 mg PO Q6H PRN PRN Reason: Moderate Pain 4-6 Zolpidem Tartrate (Ambien) 5 mg PO HSPRN PRN PRN Reason: Insomnia
[2017-12-01] MEDS: Atorvastatin Calcium 40 MG TAB PO SCH (20:28)
[2017-12-02 04:52] LABS: Potassium 3.7 mmol/L (3.5-5.1)
[2017-12-02] MEDS: Levothyroxine Sodium 100 MCG TAB PO SCH (05:53)
[2017-12-02] MEDS: Multivitamin W/ Minerals 1 TAB PO SCH (08:09)
[2017-12-02] MEDS: Potassium Chloride 20 MEQ TAB PO SCH (08:09)
[2017-12-02] MEDS: Famotidine 20 MG TAB PO SCH (08:09)
[2017-12-02] MEDS: Senokot S 8.6-50 MG TAB PO SCH (08:09)
[2017-12-02] MEDS: Polyethylene Glycol 3350 17 GM Packet PO SCH (08:09)
[2017-12-02] MEDS ORDERED: Lisinopril 5 MG TAB PO SCH (09:00)
[2017-12-02] MEDS: HYDROcodone/Acetaminophen 5/325 mg Tablet PO PRN (09:42)
[2017-12-02 11:52] VITALS: BP 112/74; TEMP 98.2
== END 2017-12-02 11:57 | DRG 470 ==
LOC: SURG A 11-28 06:41 → SJJU 11-28 14:13
PROVIDERS: ADMIT Orthopaedic Surgery; ATTEND Orthopaedic Surgery
PROC: 0SR902A Replacement of Right Hip Joint with Metal on Polyethylene Synthetic Substitute, Uncemented, Open Approach (ICD-10-PCS; principal; 2017-11-28)
DX: M16.0 Bilateral primary osteoarthritis of hip (principal); I10 Essential (primary) hypertension; E78.5 Hyperlipidemia, unspecified; E03.9 Hypothyroidism, unspecified; Z79.82 Long term (current) use of aspirin; E66.9 Obesity, unspecified; Z68.34 Body mass index [BMI] 34.0-34.9, adult
CPT/HCPCS: 36415; 71045; 80053; 83735; 84132; 85025; 85027; A4216; C1776; G8978-GP-CK; G8979-GP-CI; G8987-GO-CK; G8988-GO-CI; J1956; J2250; J2270; J2550; J2704; J3010; J3370; J3490; J7050